=== PATIENT | male | born 1980 | race Caucasian/White ===

== ENCOUNTER 2022-03-23 09:18 | Emergency (ER) | payer OTHER ==
[2022-03-23 10:17] LABS: HEMOGLOBIN 15.1 gm/dl (14.0-17.5); RED BLOOD COUNT 4.66 M/UL (4.20-5.50); WHITE BLOOD COUNT 8.2 K/UL (4.5-11.0)
[2022-03-23 10:57] LABS: BUN/CREATININE RATIO 11 (0-10)
== END 2022-03-23 14:20 | disposition home or self-care (01) ==
LOC: ER1 09:18
PROVIDERS: Physician Assistant
DX: R20.2 Paresthesia of skin (principal); F20.9 Schizophrenia, unspecified; I10 Essential (primary) hypertension; Z87.891 Personal history of nicotine dependence; Z20.822 Contact with and (suspected) exposure to COVID-19
CPT/HCPCS: 0240U; 70450; 71045; 80053; 80178; 82550; 82553; 82962; 83605; 83690; 83735; 84484; 85025; 85610; 85730; 96374; 99284

== ENCOUNTER → 2022-03-29 | Outpatient (CLI) | payer OTHER | LOC: KOH-I 15:30 | DX: R53.83 Other fatigue (principal); R40.0 Somnolence; R53.1 Weakness; Z86.73 Personal history of transient ischemic attack (TIA), and cerebral infarction without residual deficits | CPT/HCPCS: 70450 ==